=== PATIENT | female | born 1985 | race Hispanic/Latino ===

== ENCOUNTER 2018-08-17 06:30 | Day surgery (SDC) | payer OTHER ==
[2018-08-16 13:09] VITALS: BMI 37.4
[2018-08-17] MEDS ORDERED: CEFAZOLIN 2 GM/50 ML BAG ONE (07:37)
[2018-08-17] MEDS ORDERED: Fentanyl 100 MCG/2 ML VIAL ONE ×3 (08:02→09:32)
[2018-08-17] MEDS ORDERED: Midazolam HCl 2 mg/2 ml Vial ONE (08:02)
[2018-08-17] MEDS ORDERED: Meperidine HCl/PF 25 MG/ML VIAL ONE (09:35)
--- NOTE | 2018-08-17 12:54 | OP ---
DATE OF PROCEDURE: 08/17/2018 PREOPERATIVE DIAGNOSIS: Right knee lateral meniscus tear. 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 PROCEDURES PERFORMED: Right knee arthroscopy and partial lateral meniscectomy. CONTRACT ASSISTANT: None. BLOOD LOSS: Minimal. COMPLICATIONS: None. ANESTHESIA: She had general anesthetic as well as local knee block. DISPOSITION: She went to recovery room in stable condition. INDICATIONS FOR PROCEDURE: This is a 33-year-old active female, who injured her right knee doing her exercise program and came to the clinic with the swollen painful knee. MRI confirmed lateral meniscus tear. At this time, she opted to have surgery. DESCRIPTION OF PROCEDURE: After all appropriate consent forms were explained and signed, she was taken back to the operating room. At this time, she was given general anesthetic. Once the level of anesthesia was appropriate, a tourniquet was placed on the right thigh and leg was placed in arthroscopic leg reeder. The limb was then prepped and draped in standard surgical fashion. The limb was then exsanguinated and the tourniquet was taken up to 250 mmHg. Inferolateral portal was established. The scope was placed into the knee joint. A needle localization technique was then used to make a medial working portal. Diagnostic arthroscopy commenced in the notch. The ACL and PCL were probed and found to be intact. The medial compartment was completely intact. The lateral compartment was entered and she was found to have a discoid lateral meniscus with her tear emanating in the central portion of the meniscus itself. Fortunately, the entire periphery of the meniscus was in good condition and this literally made for a perfect saucerization of her lateral meniscus, and a biter and shaver were used to perform this. Once this was done, remaining tissue was in good condition. The femur and tibia were in good condition. The patellofemoral joint was in excellent condition. No loose bodies were noted in either medial or lateral gutter. At this time, the scope was removed, knee was drained, and the portals were closed with a simple nylon stitch. Bulky sterile dressing was applied. Tourniquet was let down. Toes pinked up nicely. The patient was awakened. She was taken to the recovery room in stable condition. All counts were correct at the end of the case and she did receive preoperative IV antibiotics. Job ID: [id number]
== END 2018-08-17 11:50 | disposition home or self-care (01) ==
LOC: SDC 06:30
PROVIDERS: ATTEND Orthopaedic Surgery
PROC: 0SBC4ZZ Excision of Right Knee Joint, Percutaneous Endoscopic Approach (ICD-10-PCS; principal; 2018-08-17)
DX: S83.281A Other tear of lateral meniscus, current injury, right knee, initial encounter (principal); Y93.B9 Activity, other involving muscle strengthening exercises; Z88.1 Allergy status to other antibiotic agents; Z91.040 Latex allergy status
CPT/HCPCS: 96374; G8978-GP-CJ; G8979-GP-CJ; G8980-GP-CJ; J2175; J2250; J3010